=== PATIENT | male | born 1970 | race Caucasian/White ===

== ENCOUNTER → 2017-03-05 | Outpatient (CLI) | payer OTHER ==
[~2017-03-05] MED LIST: ASPI325T6 PO; BENICAR40 MG PO; CELEBREX 200MG200 MG PO; HCTZ12.5TAB PO; LEXAPRO20 MG PO; MOBIC15 MG PO; NORCO 325 MG-7.1 TAB PO; SINGULAIR 110 MG/TAB PO; TRIBENZOR 10 MG1 TAB PO; ULTRAM 50MG TAB50 MG PO; VENTOLIN0.09 MG IH
== END ==
LOC: COL.RAD 12:54
DX: M47.27 Other spondylosis with radiculopathy, lumbosacral region (principal); M51.16 Intervertebral disc disorders with radiculopathy, lumbar region; M48.07 Spinal stenosis, lumbosacral region; M25.78 Osteophyte, vertebrae

== ENCOUNTER → 2018-02-19 | Outpatient (CLI) | payer MEDICAID | LOC: COL.RAD 09:30 | DX: M47.22 Other spondylosis with radiculopathy, cervical region (principal); M99.71 Connective tissue and disc stenosis of intervertebral foramina of cervical region; Z96.642 Presence of left artificial hip joint ==

== ENCOUNTER → 2018-11-06 | Outpatient (CLI) | payer MEDICAID | LOC: COL.RAD 09:33 | DX: M48.061 Spinal stenosis, lumbar region without neurogenic claudication (principal); M51.37 Other intervertebral disc degeneration, lumbosacral region; M51.26 Other intervertebral disc displacement, lumbar region ==